=== PATIENT | female | born 1970 | race Caucasian/White ===

== ENCOUNTER 2017-01-03 15:47 | Emergency (ER) | payer MEDICAID, OTHER ==
[~2017-01-03] VITALS: Ht 167.6 cm; Wt 65.8 kg
[2017-01-03 16:00] VITALS: BP 125/77
== END 2017-01-03 21:19 | disposition left against medical advice (07) ==
LOC: ER 15:55
DX: R21 Rash and other nonspecific skin eruption (principal); R00.0 Tachycardia, unspecified; Z53.21 Procedure and treatment not carried out due to patient leaving prior to being seen by health care provider
CPT/HCPCS: 93005